=== PATIENT | male | born 1970 | race Caucasian/White ===

== ENCOUNTER → 2021-10-06 | Day surgery (SDC) | payer OTHER ==
[~2021-10-06] VITALS: Ht 180.3 cm; Wt 113.6 kg
[~2021-10-06] MED LIST: BUPIVACAINE-EPI 0.25% 30 ML VIAL KIT. ONE; DEXAMETHASONE SOD PHOS 4 MG/ML VIAL ONE; HYDROmorphone 2 MG/ML VIAL IVP PRN; IBUP-1027 PO; IV RINGERS,LACTATED 1000ML 1,000 ML IV SCH; KETOROLAC 30 MG/ML VIAL. ONE; LIDOCAINE 2% PF 5 ML VIAL. ONE; MIDAZOLAM HCL/PF 2 MG/2 ML VIAL. ONE; MORPHINE SULFATE 2 MG/ML INJ. ONE; ONDANSETRON PF 4 MG/2 ML VIAL. ONE; PROCHLORPERAZINE 10 MG/2 ML VIAL. IVP PRN; PROPOFOL 10 MG/ML (20ML) VIAL. IV ONE; SEVOFLURANE 31 TO 60 MINUTES. IH ONE; TRAM50TA PO; fentaNYL PF VIAL 100 MCG/2 ML VIAL IVP PRN; fentaNYL PF VIAL 100 MCG/2 ML VIAL ONE; traMADol 50 MG TABLET PO ONE
[2021-10-06 09:04] VITALS: BP 137/97
--- NOTE | 2021-10-06 10:14 | DISCH ---
DISCHARGE INSTRUCTIONS Condition on Discharge Condition on Discharge: Stable Activity After Discharge Activity Instructions for Disc: Activity as tolerated, Avoid exertion Bathing Instructions: Shower-keep dressing dry Lifting Instructions after Dis: Do not lift >10 pounds Driving Instructions after Dis: Do not drive today Weight Bearing Status after Di: Full weight bearing Wound Incision Care Other wound/incision instructi: may change dressings Post op day 3 Follow-Up Follow up with: 10-14 days EMILY XAVIER Jr. DO Oct 06, 2021 10:14
--- NOTE | 2021-10-06 10:40 | PDOC4 ---
OPERATIVE NOTE Date: Date: Oct 06, 2021 Pre-Op Diagnosis: Degenerative joint disease left knee Post-Op Diagnosis: Same Procedure Performed: Left knee arthroscopy with chondroplasty patella femoral sulcus and medial compartment Surgeon: Sharonda Anesthesia Type: General Blood Loss: 20 cc Specimans Obtained: None Findings: See dictation Complications: None EMILY XAVIER Jr. DO Oct 06, 2021 10:40
[2021-10-06 11:00] VITALS: BP 101/45
--- NOTE | 2021-10-06 11:08 | OP ---
DATE OF SURGERY: 10/06/2021 PREOPERATIVE DIAGNOSES: Degenerative joint disease, patellofemoral joint with chondral lesion, medial femoral condyle and patellofemoral joint. POSTOPERATIVE DIAGNOSES: Degenerative joint disease, patellofemoral joint with chondral lesion, medial femoral condyle and patellofemoral joint. PROCEDURE: Left knee arthroscopy with chondral debridement of patellofemoral sulcus as well as medial compartment. SURGEON: Ruben Mcdonough Jr., METAL BOX MAKER: Reinier Alexis MD ANESTHESIA: General. COMPLICATIONS: None. ESTIMATED BLOOD LOSS: 20 mL. Standard dictation for safety assistant. DESCRIPTION OF PROCEDURE: The patient was taken to the operative suite, given a general anesthetic. Left lower extremity placed in the knee stein, prepped and draped in a sterile fashion. The patellofemoral joint was visualized and noted to have significant degenerative changes. The entire middle facet and lateral facet were completely devoid of tissue. No chondral surface was intact at this point. ____ this was unstable with probing. Therefore, chondral debridement was undertaken on the periphery. Chondral debridement was also undertaken on the femoral sulcus, which was noted to be large areas of grade 3, more than grade 4. One small area of grade 4 midsubstance, otherwise grade 3 throughout. This was debrided back to stable tissue. Scope was then taken into the medial and lateral gutters. No loose bodies were noted. Scope was then taken into the medial compartment. There was noted to be from 0 degrees up to 70-75 degrees of flexion. Deep grade 3 changes of the femoral side of the joint. This was unstable with probing, especially toward extension and flexion. Therefore, this was debrided back to stable tissue. After complete debridement was undertaken of this area, there was no significant bone exposed, but again very close at this point. Tibial side was intact. Meniscus was intact as well with no significant changes. This was stable with probing. The ACL and the PCL were visualized and noted to be intact and stable with probing as well. The lateral compartment was also noted to be intact. There was some softening on the tibial side of the joint and femoral side of the joint, but no tears of the meniscus and no other chondral lesion. This was then reinspected. No new problems were noted. Therefore, this was thoroughly irrigated and suctioned dry. All instruments were removed. Local was placed in the portal sites. Portal sites were then closed in an interrupted fashion. Sterile dressing was applied. The patient was then taken from the operative bed to the postoperative bed, taken to the PACU in stable condition. LIV DR: Kaitlin TID: [id number]
[2021-10-06] MEDS: MORPHINE SULFATE 2 MG/ML INJ. IVP PRN ×2 (11:21→11:42)
== END | disposition home or self-care (01) ==
LOC: SURG 08:21
PROVIDERS: ATTEND Orthopaedic Surgery
DX: M17.12 Unilateral primary osteoarthritis, left knee (principal); M25.562 Pain in left knee; M22.42 Chondromalacia patellae, left knee; E66.9 Obesity, unspecified; Z79.899 Other long term (current) drug therapy; Z98.890 Other specified postprocedural states; Z87.891 Personal history of nicotine dependence
CPT/HCPCS: 29877; A4209; A4930; J0690; J1100; J1885; J2250; J2270; J2405; J2704; J3010

== ENCOUNTER → 2021-11-10 | Day surgery (SDC) | payer OTHER ==
[~2021-11-10] VITALS: Ht 175.3 cm; Wt 113.6 kg
[~2021-11-10] MED LIST changes: +GLYCOPYRROLATE 1 MG/5 ML VIAL. ONE; +HYDR-2759 PO; +HYDR-2761 PO; +HYDROcodone/APAP 5/325MG 1 TAB TABLET PO ONE; -KETOROLAC 30 MG/ML VIAL. ONE; +LIDOCAINE 1% PF 5 ML VIAL. ONE; -LIDOCAINE 2% PF 5 ML VIAL. ONE; -MIDAZOLAM HCL/PF 2 MG/2 ML VIAL. ONE; +MORPHINE SULFATE 2 MG/ML INJ. IVP PRN; -MORPHINE SULFATE 2 MG/ML INJ. ONE; +ePHEDrine PF IN SALINE 50 MG/10 ML SYRINGE. IV ONE; -traMADol 50 MG TABLET PO ONE
[2021-11-10 09:22] VITALS: BP 153/91
--- NOTE | 2021-11-10 11:11 | DISCH ---
DISCHARGE INSTRUCTIONS Condition on Discharge Condition on Discharge: Stable Activity After Discharge Activity Instructions for Disc: Activity as tolerated, Avoid exertion Bathing Instructions: Shower-keep dressing dry Lifting Instructions after Dis: Do not lift >10 pounds Driving Instructions after Dis: Do not drive today Weight Bearing Status after Di: Full weight bearing Wound Incision Care Other wound/incision instructi: May change dressings postoperative day #3 Follow-Up Follow up with: 10 to 14 days EMILY XAVIER Jr. DO Nov 10, 2021 11:11
--- NOTE | 2021-11-10 11:18 | HP ---
DATE OF SERVICE: 11/10/2021 ADMIT DATE: 11/10/2021 HISTORY OF PRESENT ILLNESS: The patient is a 50-year-old male who is here today with complaints of right knee pain. He previously underwent a left knee arthroscopy and did very well from that, but continues to have significant pain and problems in his right knee at the present time as far as the patellofemoral joint is concerned. Therefore, since he continues to have crepitance and near locking episodes, he is consented for knee arthroscopy today. No other complaints at this point. PAST MEDICAL HISTORY: Unremarkable. FAMILY HISTORY: Unremarkable. REVIEW OF SYSTEMS: Unremarkable other than right knee pain and problems. MEDICATIONS: Include ibuprofen 600 mg q.8 hours. MEDICATION ALLERGIES: No known drug allergies. PHYSICAL EXAMINATION: He is 69 inches tall, 250 pounds. He has a knee joint effusion today, which is very mild. There is a lot of crepitance and pain anteriorly throughout the arc of motion, no locking episodes, no instability episodes. No medial or lateral joint line tenderness. Negative Apley's and Myles's test at this point. No instability in the varus, valgus or AP plane at this point. No atrophy of musculature, right versus left. Distal neurovascular status is fully intact. IMPRESSION: Chondromalacia patella, right knee. PLAN: At this time, we will proceed with a right knee arthroscopy since he has failed all conservative therapies to this point. He is well aware of the risks, complications as well as benefits and expectations of surgery, postoperative protocol and followup and all questions were answered to his satisfaction today. LIV DR: Kaitlin TID: [id number]
--- NOTE | 2021-11-10 11:39 | PDOC4 ---
OPERATIVE NOTE Date: Date: Nov 10, 2021 Pre-Op Diagnosis: Chondromalacia patella right knee Post-Op Diagnosis: Chondromalacia patella and medial compartment chondromalacia right knee Procedure Performed: Right knee arthroscopy with chondroplasty medial femoral condyle patellofemoral joint Surgeon: Sharonda Anesthesia Type: General Blood Loss: 20 cc Specimans Obtained: None Findings: See dictation Complications: None EMILY XAVIER Jr. DO Nov 10, 2021 11:39
--- NOTE | 2021-11-10 12:01 | OP ---
DATE OF SURGERY: 11/10/2021 PREOPERATIVE DIAGNOSIS: Chondromalacia of patella, right knee. POSTOPERATIVE DIAGNOSIS: Chondromalacia of patella, right knee as well as medial femoral compartment, right knee. PROCEDURE: Right knee arthroscopy with chondroplasty of medial femoral condyle and patellofemoral joint. SURGEON: Ruben Mcdonough Jr, DO ANESTHESIA: General. COMPLICATIONS: None. ESTIMATED BLOOD LOSS: 20 mL. DESCRIPTION OF PROCEDURE: The patient was taken to the operative suite, given a general anesthetic. Right lower extremity was placed in the knee stein, prepped and draped in a sterile fashion. Inferomedial and inferolateral portals were established. Knee was insufflated with saline. Visualization of the patellofemoral joint noted there to be a grade 3 and some small areas of grade 4 changes along the area of the femoral sulcus. There was a significant area from full extension all the way down to approximately 90 degrees of flexion, which was unstable as far as the chondral surface. The debridement was undertaken to both the patellar side of the joint as well as especially the femoral sulcus and again there were areas of grade 3 and a large area of grade 4 as well. After this was thoroughly irrigated and this was noted to be in much better position, scope was then taken in the medial gutter, no loose bodies in the medial compartment. From 0 to approximately 25 degrees of flexion, there was no significant chondral damage; however, from 30 degrees up to 75 degrees of flexion, there were some very deep grade 3 changes, which were unstable throughout the arc of motion. The debridement was undertaken of the peripheral aspects of this. This was debrided back to stable tissue. There was also grade 3 changes on the tibial side of the joint, which were debrided minimally. This was more fraying and lengthening of the meniscus appeared to be intact and was indeed intact and stable with probing. The ACL and the PCL appeared intact visually as well as with probing and then the lateral compartment was noted to be intact without any lesions or abnormalities. The meniscus was probed and noted to be stable. No loose bodies were noted in the lateral gutter. This was then thoroughly irrigated. Local was placed in the portal sites. The portal sites were then reapproximated. Sterile dressing was applied. The patient was then taken from the operative bed to the postoperative bed, taken to the PACU in stable condition. JOAQUIN/ESTEE DR: JOAQUIN/mata TID: [id number]
[2021-11-10 12:46] VITALS: BP 145/106
== END | disposition home or self-care (01) ==
LOC: SURG 08:58
PROVIDERS: ATTEND Orthopaedic Surgery
DX: M22.41 Chondromalacia patellae, right knee (principal); M19.90 Unspecified osteoarthritis, unspecified site; E66.9 Obesity, unspecified; Z87.891 Personal history of nicotine dependence; Z79.899 Other long term (current) drug therapy; Z98.890 Other specified postprocedural states
CPT/HCPCS: 29877; A4930; J0690; J1100; J2405; J2704; J3010; J3490; A4452